=== PATIENT | male | born 1985 ===

== ENCOUNTER 2017-01-27 08:29 | Emergency (ER) | payer OTHER ==
[2017-01-27 08:39] VITALS: RESP 18; TEMP 97.9; O2SAT 100
[2017-01-27] MEDS ORDERED: Lidocaine 2% Inj (20ml) INFIL STA (09:28)
[2017-01-27] MEDS ORDERED: Lidocaine 2% Inj (20ml) ONE (09:31)
[2017-01-27] MEDS ORDERED: Bacitracin Ointment 30 GM TUBE TOP STA (10:26)
[2017-01-27] MEDS ORDERED: Bacitracin 500 Units/gm Oint Foilpak UD ONE (10:27)
--- NOTE | 2017-01-27 10:32 | C.PDOC ---
History Of Present Illness 31 y/o male presents to the ED with complaints of worsening pain to right great toe with ingrown toe nail x3 weeks. Pt reports pain to walk with shoes. History of same to other foot a couple years ago. Denies fever, chills, numbness or any other complaints. Time Seen by Provider: 01/27/17 09:08 Chief Complaint (Nursing): Lower Extremity Problem/Injury History Per: Patient History/Exam Limitations: no limitations Onset/Duration Of Symptoms: Days Current Symptoms Are (Timing): Worse Severity: Moderate Recent travel outside of the [place]: No Past Medical History Reviewed: Historical Data, Nursing Documentation, Vital Signs Vital Signs: Last Vital Signs Temp 97.9 F 01/27/17 08:36 Pulse 72 01/27/17 10:15 Resp 18 01/27/17 10:15 BP 110/72 01/27/17 10:15 Pulse Ox 100 01/27/17 10:32 Family History: States: Unknown Family Hx - Social History Hx Alcohol Use: Yes Hx Substance Use: No - Immunization History Hx Tetanus Toxoid Vaccination: No Hx Influenza Vaccination: No Hx Pneumococcal Vaccination: No Review Of Systems Constitutional: Negative for: Fever, Chills Musculoskeletal: Positive for: Other (right great toe pain, ingrown nail) Neurological: Negative for: Numbness Physical Exam - Physical Exam Appears: Non-toxic, No Acute Distress Skin: Warm, Dry, No Rash Extremity: Normal ROM, Other (medial aspect of right great toe with nail grown into cuticle) Neurological/Psych: Oriented x3, Normal Speech, Normal Motor, Normal Sensation ED Course And Treatment O2 Sat by Pulse Oximetry: 100 (room air) Pulse Ox Interpretation: Normal Progress Note: Pt seen and treated by by podiatry resident. Discharged with instructions to follow up in podiatry clinic in 5 days. Disposition - Disposition Referrals: [facility] [Outside] Disposition: HOME/ ROUTINE Disposition Time: 10:29 Condition: STABLE Additional Instructions: Follow up in Podiatry clinic on Wednesday, February 01. Siga en la clinica el [facility] . Instructions: Toenail/Fingernail Removal (ED) Forms: Gen Discharge Inst Arabic - POA Present On Arrival: None - Clinical Impression Clinical Impression: Ingrown nail of great toe of right foot - Scribe Statement The provider has reviewed the documentation as recorded by the Scribe Les Crespo Provider Attestation: All medical record entries made by the Chilango were at my direction and personally dictated by me. I have reviewed the chart and agree that the record accurately reflects my personal performance of the history, physical exam, medical decision making, and the department course for this patient. I have also personally directed, reviewed, and agree with the discharge instructions and disposition.
[2017-01-27 10:44] VITALS: BP 110/72; PULSE 72
--- NOTE | 2017-01-27 11:11 | CP.PCM.CON ---
History of Present Illness - History of Present Illness History of Present Illness: 31 y/o male with no significant pmhx seen at bedside in the ED for right foot big toe pain. Patient states that he has had an ingrown toenail that has gotten progressively more painful over the past 3 weeks. He states that he has had a previous nail avulsion performed on the left foot about 2 years ago. Patient denies any acute trauma to the toe. He states that his pain is about a 4/10 currently. Patient denies any other pedal complaints. Review of Systems - Constitutional Constitutional: As Per HPI Past Patient History - Infectious Disease Hx of Infectious Diseases: None - Past Social History Smoking Status: Never Smoked - PSYCHIATRIC Hx Substance Use: No - SURGICAL HISTORY Hx Surgeries: No - ANESTHESIA Hx Anesthesia: No Meds Allergies/Adverse Reactions: Allergies Allergy/AdvReac Type Severity Reaction Status Date / Time No Known Allergies Allergy Verified 01/27/17 08:39 Physical Exam - Constitutional Appears: Well, Non-toxic, No Acute Distress - Extremities Exam Additional comments: right foot focused: Vasc: DP /PT 2/4, TG wnl, CFT < 3 sec to all digits, pedal hair present neuro: grossly intact derm: localized edema and erythema to medial hallucal border, no active drainage , no purulence, no malodor, no ascending cellulitis, no flucutuance ortho: pain on palpation of medial hallucal nail border Results - Vital Signs Recent Vital Signs: Last Vital Signs Temp 97.9 F 01/27/17 08:36 Pulse 72 01/27/17 10:15 Resp 18 01/27/17 10:15 BP 110/72 01/27/17 10:15 Pulse Ox 100 01/27/17 11:00 Assessment & Plan - Assessment and Plan (Free Text) Assessment: 31 y/o male with no pmhx seen at bedside in ED for painful ingrown toenail of right hallux Plan: patient evaluated and chart reviewed discussed in detail with attending Dr. Huff labs and vitals reviewed right toe was cleansed and soaked with betadine 8CC of 1% lidocaine plain injected in a local block type fashion to right hallux using a hemostat, and vincent scissors, the medial nail border was excised applied bacitracin, 4x4 gauze, kerlix to right foot patient tolerated procedure well with no complications patient to keep dressing clean,dry,intact for 3 days patient to follow up in podiatry clinic at [facility] on 02/01
== END 2017-01-27 10:43 | disposition home or self-care (01) ==
LOC: C.ER 08:29
DX: L60.0 Ingrowing nail (principal)